=== PATIENT | female | born 1985 | race Caucasian/White ===

== ENCOUNTER 2021-03-22 14:30 | Outpatient (CLI) | payer BC, SELFPAY ==
--- NOTE | 2021-03-22 | ECG_ITS ---
Measurements Intervals [place] Rate: 78 P: 51 DE: 148 QRS: 40 QRSD: 96 T: 25 QT: 389 QTc: 445 Interpretive Statements SINUS RHYTHM WITH SINUS ARRHYTHMIA POSSIBLE LEFT ATRIAL ENLARGEMENT INCOMPLETE RIGHT BUNDLE BRANCH BLOCK CANNOT RULE OUT SEPTAL INFARCT, AGE INDETERMINATE BORDERLINE ST-T WAVE ABNORMALITY- ANT/INF LEADS ABNORMAL ECG Electronically Signed On 03-22-2021 18:15:54 CERTIFIED ADDICTION COUNSELOR by Warner Wilson D.O.
[2021-03-22 15:30] LABS: Troponin I < 0.012 ng/mL (0.000-0.034)
== END 2021-03-22 14:31 | disposition home or self-care (01) ==
PROVIDERS: PCP Internal Medicine; Visit Provider Internal Medicine
DX: R07.89 Other chest pain (principal); R94.31 Abnormal electrocardiogram [ECG] [EKG]
CPT/HCPCS: 36415; 84484; 93005

== ENCOUNTER 2021-04-14 09:00 | Outpatient (CLI) | payer BC, SELFPAY ==
--- NOTE | 2021-04-14 | EST_ITS ---
Patient Info Name: Kamini Nix Age: 35 years : 1985 Gender: Female Ht: 65 in Wt: 143 lbs BSA: 1.73 m2 HR: 80 bpm BP: 124 / 72 mmHg Heart Rhythm: Sinus Rhythm Exam Date: 04/14/2021 9:19 AM Exam Location: [facility] Stress Patient Status: Outpatient Admit Date: 04/14/2021 Staff Ordering Physician: RenzoHina MD Attending Provider: RenzoHina MD Exercise Technologist: Sandra Perez CT Nurse: bennie manzo Exercise Physician: Lukasz Kingsley MD Exam Type: CA stress test treadmill Study Info Indications R07.9 - Chest pain, unspecified A treadmill exercise stress test was performed. Summary 1. Exercise capacity very good at >10 METS. 2. No chest discomfort with stress test. 3. Nondiagnostic upsloping ST segment depression seen in the inferior leads which do not meet strict criteria for ischemia up to a level of 96% of max predicted heart rate for age. Protocol: [facility] Stress ECG Details Stage: REST Duration (min): 1 min : 53 sec Speed (mph): 0.0 Grade (%): 0 HR (bpm): 78 SBP (mmHg): 124 DBP (mmHg): 72 METS: --- Stage: REST Duration (min): 4 min : 12 sec Speed (mph): 0.0 Grade (%): 0 HR (bpm): 87 SBP (mmHg): 124 DBP (mmHg): 72 METS: --- Stage: REST Duration (min): 8 min : 41 sec Speed (mph): 0.0 Grade (%): 0 HR (bpm): 74 SBP (mmHg): 124 DBP (mmHg): 72 METS: --- Stage: STAGE 1 Duration (min): 1 min : 0 sec Speed (mph): 1.7 Grade (%): 10 HR (bpm): 106 SBP (mmHg): 124 DBP (mmHg): 72 METS: --- Stage: STAGE 1 Duration (min): 2 min : 0 sec Speed (mph): 1.7 Grade (%): 10 HR (bpm): 125 SBP (mmHg): 124 DBP (mmHg): 72 METS: --- Stage: STAGE 1 Duration (min): 3 min : 0 sec Speed (mph): 1.7 Grade (%): 10 HR (bpm): 138 SBP (mmHg): 145 DBP (mmHg): 86 METS: --- Stage: STAGE 2 Duration (min): 1 min : 0 sec Speed (mph): 2.5 Grade (%): 12 HR (bpm): 125 SBP (mmHg): 145 DBP (mmHg): 86 METS: --- Stage: STAGE 2 Duration (min): 2 min : 0 sec Speed (mph): 2.5 Grade (%): 12 HR (bpm): 146 SBP (mmHg): 127 DBP (mmHg): 80 METS: --- Stage: STAGE 2 Duration (min): 3 min : 0 sec Speed (mph): 2.5 Grade (%): 12 HR (bpm): 157 SBP (mmHg): 127 DBP (mmHg): 80 METS: --- Stage: STAGE 3 Duration (min): 1 min : 0 sec Speed (mph): 3.4 Grade (%): 14 HR (bpm): 161 SBP (mmHg): 163 DBP (mmHg): 82 METS: --- Stage: STAGE 3 Duration (min): 2 min : 0 sec Speed (mph): 3.4 Grade (%): 14 HR (bpm): 171 SBP (mmHg): 163 DBP (mmHg): 82 METS: --- Stage: STAGE 3 Duration (min): 3 min : 0 sec Speed (mph): 3.4 Grade (%): 14 HR (bpm): 174 SBP (mmHg): 186 DBP (mmHg): 78 METS: --- Stage: RECOVERY [employer]
== END 2021-04-14 09:01 | disposition home or self-care (01) ==
LOC: ANHCARD 09:03
PROVIDERS: PCP Internal Medicine; Visit Provider Internal Medicine
DX: R07.89 Other chest pain (principal)
CPT/HCPCS: 93017

== ENCOUNTER 2021-06-24 01:15 | Day surgery (SDC) | payer BC, SELFPAY ==
[2021-06-22 09:47] VITALS: BMI 24.1
--- NOTE | 2021-06-22 09:56 | PC.NURSE ---
Report to the Outpatient Waiting Room, entrance under the green pavilion located off [facility], at time 0600 on date 06/24/21. OR Time: 0730. - You and your visitor will be asked a series of questions to screen for COVID 19 for your protection. - A mask is required within the hospital. One visitor will be allowed to accompany the patient into the hospital. Patients visitor will be instructed to remain with patient at all times or leave the building. We will allow the visitor to come back to the postoperative area when patient is ready. Preoperative COVID Testing Requirements: No COVID Test needed if: (proof is required; if not received patient will have Rapid Test prior to entry) - Patient has received COVID Vaccine at least 14 days prior to procedure date or - Patient has positive COVID test result within last 90 days of surgery date. COVID Test needed if above criteria is not met Patients may have clear liquids (water, carbonated beverages, clear teas, apple juice) until 3 hours prior to surgery with a maximum of 20 ounces. - No food from midnight until time of surgery Take the following medications with a SIP of water the morning of surgery: NONE Medications to discontinue per physician: N/A Date to take last dose: N/A Please no make-up, nail swedish, hairspray, perfume, deodorant, or body powder the day of surgery. No jewelry (including any body piercings) or valuables the day of surgery, leave them at home. Please take a shower or bath the night before, or the morning of, surgery with an antibacterial soap. Wear comfortable, loose fitting clothing. - Jewelry must be removed prior to entering the operating room. Rings and piercings that are not removed may be cut off. - The hospital will not accept responsibility for valuables. - Please leave all valuables, including medications, at home the day of surgery. If you are going home after surgery, a licensed recycling collections driver must drive you home. - NO public transportation without another adult. - We recommend that an adult stay with you for 24 hours following discharge. - We also recommend that you do not drive, make important decision, drink alcoholic beverages, or take any drugs that were not prescribed by your health care provider for at least 24 hours after your discharge time. Follow any additional instructions given to you from your surgeon. Telephone instructions given to ANTONETTE PARKINSON and asked if any additional questions and then verbalized understanding. Patient advised to call surgeon office or pre surgery nurse liaison [phone] if any additional questions.
[2021-06-24] MEDS: LACTATED RINGERS 1,000 ML 30 ML IV CONT (06:30)
--- NOTE | 2021-06-24 06:31 | WPDANESEPPF ---
Anes - Initial Pre Proc Eval Procedure: Operation Date: 06/24/21 07:30 Proposed Procedures p Excision Sebaceous Cyst of Labia - Julio Carrillo MD Date/Time: 06/24/21 06:31 Surgeon: Julio Carrillo MD Pre Op Diagnosis: sebaceous cyst of labia Patient Data Age: 35 Gender: F Height: 1.65 m Weight: 65.77 kg Allergies Allergy/AdvReac Type Severity Reaction Status Date / Time No Known Allergies Allergy Verified 06/22/21 09:47 Home Medications Medication Instructions Recorded Confirmed Type No Home Medications 06/22/21 06/22/21 History Patient hx anesthesia problems: none Family hx anesthesia problems: none Results Review: All pre-operative results and documents have been reviewed as part of the pre-operative evaluation. [facility] Past Medical History Medical History (Updated 06/24/21 @ 06:32 by Bharat Dutta MD) Pectus excavatum Surgical History Surgical History (Updated 06/24/21 @ 06:32 by Bharat Dutta MD) History of thoracic surgery surgical repair Family History Family History Grandparent Diabetes mellitus, Onset Age: 75 Family history of elevated blood lipids Cerebrovascular accident, Onset Age: 75 Mother Family history of elevated blood lipids Family history of malignant neoplasm of breast in first degree relative Social History Social History Smoking status: Never smoker Second hand tobacco smoke exposure: No Alcohol intake: current Drinks per week: 4 Substance use: current Substance use type: marijuana Other substance usage details: EDIBLE FOR SLEEP Living arrangements: with family Spiritual care concerns: No Anes - Eval Final PreProcedure Day of Procedure 06/24/21 06:31 Patient weight: normal Heart: regular rate and rhythm Lungs: clear to auscultation Airway: Mallampati scale class II Neurological: alert and oriented Last oral intake: >/= 8 hours ASA classification: II Emergent: no Anesthetic plan: proceed Anesthesia type and monitoring: general GIVS and standard monitoring Results Review: All pre-operative results and documents have been reviewed as part of the pre-operative evaluation. Informed Consent: The patient's anesthetic plan and its attendant risks and benefits were discussed with the patient/family/POA. Questions were solicited and answers provided to the satisfaction of the patient/family/POA.
[2021-06-24 06:35] VITALS: BP 110/66; PULSE 83; RESP 16; TEMP 36.5; O2SAT 99
--- NOTE | 2021-06-24 07:20 | PM.IMHP ---
H&P: HPI History of Present Illness Date/Time: 06/24/21 07:20 She has a vulvar cyst that gets intermittently inflamed and draining. She was recommended for excision. Chief Complaint: vulvar cyst symptomatic Review of Systems Review of Systems: All systems reviewed & are unremarkable except as noted in HPI and below Cardiovascular: Cardiovascular: Reports no additional cardiovascular complaints, Denies chest pain and Denies dyspnea Respiratory: Respiratory: Reports no additional respiratory complaints and Denies dyspnea Gastrointestinal: Gastrointestinal: Reports abdominal pain, Denies change in bowel habits, Denies diarrhea, Denies nausea and Denies vomiting Genitourinary: Genitourinary: Reports pelvic pain Musculoskeletal: Musculoskeletal: Reports back pain Integumentary/Breasts: Skin/Breast: Reports system reviewed and no additional complaints, except as docu Neurologic: Reports system reviewed and no additional complaints, except as documented [facility] Past Medical History Medical History (Updated 06/24/21 @ 06:32 by Bharat Dutta MD) Pectus excavatum Surgical History Surgical History (Updated 06/24/21 @ 06:32 by Bharat Dutta MD) History of thoracic surgery surgical repair Family History Family History Grandparent Diabetes mellitus, Onset Age: 75 Family history of elevated blood lipids Cerebrovascular accident, Onset Age: 75 Mother Family history of elevated blood lipids Family history of malignant neoplasm of breast in first degree relative Social History Social History Smoking status: Never smoker Second hand tobacco smoke exposure: No Alcohol intake: current Drinks per week: 4 Substance use: current Substance use type: marijuana Other substance usage details: EDIBLE FOR SLEEP Living arrangements: with family Spiritual care concerns: No Meds Home Medications and Allergies Home Medications Medication Instructions Recorded Confirmed Type No Home Medications 06/22/21 06/24/21 History Allergies Allergy/AdvReac Type Severity Reaction Status Date / Time No Known Allergies Allergy Verified 06/24/21 06:44 Vital Signs Vital Signs - 24 hr 06/24/21 06:35 Temperature 97.7 F Pulse Rate 83 Respiratory Rate 16 Blood Pressure 110/66 Pulse Oximetry 99 Exam Const: Orientation/consciousness: oriented to person and oriented to place HENMT: Head: normal to inspection Eyes: General: appearance normal, both eyes and all related structures Resp: Effort & Inspection: normal respiratory effort Auscultation: clear to auscultation bilaterally Cardio: Rate: regular rate Rhythm: regular rhythm GI: Inspection: normal to inspection GI Palp: No Rebound tenderness present : External Female Exam: normal external appearance and other (2cm mobile round well circumscribed on the right labia mild tender) Neuro: General: oriented to person and oriented to place Cognition (Neuro): normal cognition Extrem: General: normal to inspection Psych: Appearance: grossly normal and well kempt Assessment and Plan Assessment and plan (1) Sebaceous cyst of labia: Code(s): N90.7 - Vulvar cyst Status: Acute Assessment and Plan: Excision of vulvar cyst.
--- NOTE | 2021-06-24 07:27 | WPDHPUPDATE1 ---
History and Physical Update Update Date/Time: 06/24/21 07:27 History and Physical has been reviewed, including an updated exam of the patient. There are NO changes in the patient's condition. Risks, benefits, and alternatives have been discussed and questions answered. Patient agrees to proceed with procedure.
[2021-06-24] MEDS: LIDO 1%/EPINEPHRINE/PF 1:200,000 30 ML VIAL XX (07:48)
--- NOTE | 2021-06-24 07:57 | W.PM.PROC2 ---
Procedure Note - Detailed Date of Procedure 06/24/21 Pre-op Diagnosis chronic inflamed sebaceous cyst of labia Post-op Diagnosis Same Procedure Performed Excision of sebaceous cyst Surgeon Julio Carrillo MD Anesthesia MAC and Local Indications Sebaceous cyst lesion on labia intermittently inflamed for a year. Recommend excision of the cyst. Findings Right mid labia majora scarring and underneath induration approximately 1.5cm, non draining Description of Procedure After informed consent was obtained patient was taken to the operating room and adequate IV sedation was administered. She was placed in low lithotomy position and prepped and draped in sterile fashion. Attention was turned to the indurated area of the sebaceous cyst on the right outer labia majora scarring was noted no fluctuance noted but induration noted underneath the indurated area is approximately 1 in and have cm. A scalpel was used to excise the indurated area in an elliptical fashion. There was a small area that still felt indurated and this was excised it will be sent with the rest of the tissue. No subcutaneous fluid noted. The labial skin was closed with interrupted sutures of 3 0 Vicryl. Topical bacitracin ointment applied and a 2 x 2 gauze. Hemostasis noted patient tolerated procedure well. Estimated Blood Loss 1 Drains No Packing No Pathology Yes ( Chronic sebaceous cyst labial tissue) Complications None Condition Stable Disposition Same day
[2021-06-24 08:00] VITALS: BP 99/68; PULSE 76; RESP 10; O2SAT 100
[2021-06-24 08:30] VITALS: BP 101/68; PULSE 73; RESP 16
== END 2021-06-24 08:45 | disposition home health service (06) ==
PROVIDERS: PCP Internal Medicine; Visit Provider Obstetrics & Gynecology
PROC: (CPT 11422; principal; 2021-06-24 07:30)
DX: N90.7 Vulvar cyst (principal); Q67.6 Pectus excavatum; F12.90 Cannabis use, unspecified, uncomplicated
CPT/HCPCS: 11422; 88305; A9270; J0690; J2001; J2250; J2405; J2704; J3010; J7120

== ENCOUNTER → 2022-10-03 10:11 | Outpatient (CLI) | payer BC, SELFPAY ==
--- NOTE | ~2022-10-03 | US_ITS ---
EXAMINATION: US pelvic complete w TV DATE: 10/03/2022 10:37 INDICATION: Irregular menstruation, unspecified. TECHNIQUE: Multiple transabdominal and transvaginal sonographic images of the pelvis were obtained. COMPARISON: None. FINDINGS: TRANSABDOMINAL ULTRASOUND: The uterus measures 7.7 x 5.0 x 3.7 cm. There is no free fluid in the pelvis. TRANSVAGINAL ULTRASOUND: The endometrial complex measures 7 mm in thickness. The right ovary measures 1.8 x 1.4 x 1.6 cm. The left ovary measures 2.0 x 2.6 x 2.3 cm. There is normal vascular flow in the ovaries. IMPRESSION: 1. Normal pelvis. Reviewed, dictated and finalized at location A. IMPRESSION: 1. Normal pelvis.
== END ==
PROVIDERS: PCP Internal Medicine; Visit Provider Obstetrics & Gynecology
DX: N92.6 Irregular menstruation, unspecified (principal)
CPT/HCPCS: 76830; 76856